=== PATIENT | male | born 1980 | race Caucasian/White ===

== ENCOUNTER 2017-06-23 19:14 | Emergency (ER) | payer BC ==
[~2017-06-23] VITALS: Ht 188 cm; Wt 83.9 kg
[2017-06-23 19:17] VITALS: BP_SYST 122
[2017-06-23 20:10] VITALS: BP_SYST 121
[2017-06-23] MEDS ORDERED: methylPREDNISolone SOD SUCC/PF 62.5 MG/ML VIAL IM ONE (20:15)
== END 2017-06-23 20:10 | disposition home or self-care (01) ==
LOC: SED 19:14
DX: K12.0 Recurrent oral aphthae (principal); Z88.0 Allergy status to penicillin; Z88.1 Allergy status to other antibiotic agents
CPT/HCPCS: 96372; 99283; J2930